=== PATIENT | female | born 1995 | race Two or more races ===

== ENCOUNTER 2022-04-05 09:36 | Outpatient (CLI) | payer OTHER | END 2022-04-05 11:15 | disposition home or self-care (01) | LOC: PRENATAL 09:36 | PROVIDERS: ATTEND Obstetrics & Gynecology Maternal & Fetal Medicine | DX: O35.3XX0 Maternal care for (suspected) damage to fetus from viral disease in mother, not applicable or unspecified (principal); O35.9XX0 Maternal care for (suspected) fetal abnormality and damage, unspecified, not applicable or unspecified; Z3A.21 21 weeks gestation of pregnancy ==

== ENCOUNTER 2022-05-22 18:50 | Emergency (ER) | payer OTHER ==
[~2022-05-22] VITALS: Ht 160 cm; Wt 75.7 kg
[2022-05-22] MEDS ORDERED: CHILDREN'S15 MG/1 M1 (19:10)
[2022-05-22] MEDS ORDERED: PRENATAL + DHA1 EAC1 (19:11)
[2022-05-22] MEDS ORDERED: NASAL MIST126 ML (19:11)
== END 2022-05-22 22:11 | disposition home or self-care (01) ==
LOC: ER 18:50
DX: R04.0 Epistaxis (principal)

== ENCOUNTER 2022-06-27 11:05 | Outpatient (CLI) | payer OTHER ==
[~2022-06-27 11:05] MED LIST: CHILDREN'S15 MG/1 M1; NASAL MIST126 ML; PRENATAL + DHA1 EAC1
== END 2022-06-27 13:25 | disposition home or self-care (01) ==
LOC: PRENATAL 11:05
PROVIDERS: ATTEND Obstetrics & Gynecology Maternal & Fetal Medicine
DX: O26.849 Uterine size-date discrepancy, unspecified trimester (principal); O36.8199 Decreased fetal movements, unspecified trimester, other fetus; O35.9XX0 Maternal care for (suspected) fetal abnormality and damage, unspecified, not applicable or unspecified; O28.3 Abnormal ultrasonic finding on antenatal screening of mother; Z3A.33 33 weeks gestation of pregnancy

== ENCOUNTER 2022-07-20 14:03 | Outpatient (CLI) | payer OTHER | END 2022-07-20 15:45 | disposition home or self-care (01) | LOC: PRENATAL 14:03 | PROVIDERS: ATTEND Obstetrics & Gynecology Maternal & Fetal Medicine | DX: O26.849 Uterine size-date discrepancy, unspecified trimester (principal); O35.9XX0 Maternal care for (suspected) fetal abnormality and damage, unspecified, not applicable or unspecified; O36.8199 Decreased fetal movements, unspecified trimester, other fetus; O28.3 Abnormal ultrasonic finding on antenatal screening of mother; Z3A.36 36 weeks gestation of pregnancy ==

== ENCOUNTER 2022-08-02 05:25 | Inpatient (IN) | payer OTHER ==
[~2022-08-02] VITALS: Ht 160 cm; Wt 83.5 kg
[2022-08-04] MEDS ORDERED: COLACE100 MG PO (09:10)
== END 2022-08-04 14:54 | disposition home or self-care (01) | DRG 768 ==
LOC: OB/GYN 05:25 → LDR 05:25 → OB/GYN 19:39
PROVIDERS: ADMIT Obstetrics & Gynecology; ATTEND Obstetrics & Gynecology
PROC: 10E0XZZ Delivery of Products of Conception, External Approach (ICD-10-PCS; principal; 2022-08-02)
PROC: 0DQR0ZZ Repair Anal Sphincter, Open Approach (ICD-10-PCS; 2022-08-02)
PROC: 4A1HXCZ Monitoring of Products of Conception, Cardiac Rate, External Approach (ICD-10-PCS; 2022-08-02)
DX: O70.21 Third degree perineal laceration during delivery, IIIa (principal); Z37.0 Single live birth; Z3A.38 38 weeks gestation of pregnancy; Z20.822 Contact with and (suspected) exposure to COVID-19